=== PATIENT | male | born 1945 | race Caucasian/White ===

== ENCOUNTER 2017-10-29 08:50 | Day surgery (SDC) | payer MEDICARE, OTHER ==
[~2017-10-29] VITALS: Ht 175.3 cm; Wt 98.9 kg
[~2017-10-29 08:50] MED LIST: ADVIL200 M1 PO; BENICAR20 MG PO; BENICAR40 MG PO; CIALIS20 MG PO; CIALIS5 MG PO; FINASTERIDE5 MG PO; HYDROCODON-ACE1 EA11 PO; IRON18 MG PO; LEVAQUIN750 MG PO; LIFE-PACK0.8 MG PO; MACUVITE TABLE1 EACH PO; OXYCODONE HCL5 MG PO; TAMSULOSIN HCL0.4 MG PO; TERAZOSIN HCL5 MG PO; XARELTO10 MG PO
--- NOTE | 2017-10-29 11:37 | NUR ---
10/29/17 1137 [place] PAC[place], ALERT AND ORIENTED. RESP EVEN UNLABORED
--- NOTE | 2017-11-04 13:25 | OR ---
[facility] [address] [place], [place] [address] Signed DATE OF OPERATION: 10/29/2017 SURGEON: Alfonso Rg MD PREOPERATIVE DIAGNOSIS: Dupuytren's contracture, left hand affecting the 5th ray. POSTOPERATIVE DIAGNOSIS: Dupuytren's contracture, left hand affecting the 5th ray. PROCEDURE: Partial palmar fasciectomy, left hand. ANESTHESIA: Sedation with peer block. COMPLICATIONS: There were no complications. We did send the excised specimen of palmar fascia to the lab. WHAT WAS DONE: The patient was taken to the operating room. After anesthesia was induced, the patient's left upper extremity was positioned, prepped and draped in a routine sterile fashion. A longitudinal incision was outlined beginning at the midportion of the proximal phalanx extending up the palm through we reached the proximal end of the palpable nodular deformity. Skin was divided sharply. We then used a #15 blade to gently peel full-thickness flaps off the plantar fascia beginning proximally and extending distally. Once we had exposed on the volar surface, small soft tissue retractor was placed and we used a pair of curved tenotomy scissors to identify the neurovascular structures on either side and then I gently dissect them down all the way to the distal aspect of the incision. Once we had safely identified and retracted the neurovascular bundles, we then began to separate the diseased palmar fascia from the underlying tissue. It was then dissected distally and removed as a single larger fragment. At this point, we had full extension of the MCP, PIP, and DIP joints. The neurovascular structures were identified and completely intact. The wound was gently irrigated. A longitudinal incision was converted to multiple Z-plasties and closed with interrupted sutures of 4-0 nylon. A bulky hand dressing was placed and the patient was awakened to recovery room where arrived in stable condition. Counts were correct and antibiotic protocols were followed. Electronically Signed By: ALFONSO RG MD 11/04/17 1325 PATIENT NAME: HALIMA ALLEN ISIDRO OPERATIVE REPORT DATE OF : 47 PHYSICIAN: ALFONSO RG MD REPORT #: [id number] REPORT IS CONFIDENTIAL AND NOT TO BE RELEASED WITHOUT AUTHORIZATION [address] [place], [place] [address] Signed Alfonso Rg MD [facility]/MODL /[id number] Electronically Signed By: ALFONSO RG MD 11/04/17 1325 PATIENT NAME: TIFFANYHALIMA ALCARAZ OPERATIVE REPORT DATE OF : 47 PHYSICIAN: ALFONSO RG MD REPORT #: [id number] REPORT IS CONFIDENTIAL AND NOT TO BE RELEASED WITHOUT AUTHORIZATION
== END 2017-10-29 12:05 | disposition home or self-care (01) ==
LOC: OPS 08:50 → DS 08:50 → OPS 09:30
PROVIDERS: Orthopaedic Surgery
PROC: 0JNK0ZZ Release Left Hand Subcutaneous Tissue and Fascia, Open Approach (ICD-10-PCS; principal; 2017-10-29 10:15)
DX: M72.0 Palmar fascial fibromatosis [Dupuytren] (principal); M06.9 Rheumatoid arthritis, unspecified; I10 Essential (primary) hypertension; Z79.899 Other long term (current) drug therapy
CPT/HCPCS: 01810; 88304; J0690; J2250; J2704; J3010; J7120

== ENCOUNTER 2018-12-08 21:33 | Observation (INO) | payer MEDICARE, OTHER ==
[~2018-12-08] VITALS: Ht 175.3 cm; Wt 99.6 kg
[2018-12-08] MEDS ORDERED: TURMERIC500 M2 PO (21:50)
--- NOTE | 2018-12-08 23:01 | EKG ---
[facility] [address] [facility] [place] [address] Signed Normal sinus rhythm Normal ECG When compared with ECG of 27-OCT-2017 16:45, No significant change was found Confirmed by BHAVANI SANTAMARIA MD ([id number]) on 12/08/2018 11:00:59 PM Electronically Signed By: BHAVANI SANTAMARIA MD 12/08/18 2301 PATIENT NAME: HALIMA ALLEN ISIDRO Electrocardiogram DATE OF : 47 PHYSICIAN: BHAVANI SANTAMARIA MD REPORT #: [id number] REPORT IS CONFIDENTIAL AND NOT TO BE RELEASED WITHOUT AUTHORIZATION
--- NOTE | 2018-12-09 00:31 | NUR ---
ADMISSION COMPLETED. PATIENT ORIENTED TO FLOOR, ROOM, AND CALL LIGHT. PATIENT VERBALIZES UNDERSTANDING. PATIENT DENIES ANY NEEDS. ICE WATER PROVIDE. IV INFUSING. CALL LIGHT IN REACH. PATIENT WAS ABLE TO VOID. PATIENT SBA AND IS STEADY ON HIS FEET. PATIENT DENIES BEING LIGHT HEADED OR DIZZY WHEN AMBULATING.
--- NOTE | 2018-12-09 01:33 | NUR ---
AWAKES EASILY, NO C/O AUDITORY OR VISUAL HALLUCINATIONS, NO HAND TREMORS, ALERT AND ORIENTED, NO SWEATING. COOPERATIVE WITH ASSESSMENT. DENIES N/V, LIGHTHEADESS, BED ALARM ON. FALL PRECAUTIONS IN PLACE, IVF INFUSING W/O PROBLEMS
--- NOTE | 2018-12-09 05:33 | NUR ---
up to brp, tolerated well, no s/sx etoh withdrawal. coop with assessment
--- NOTE | 2018-12-09 06:16 | NUR ---
PT HAS SLEPT, IS ALERT AND ORIENTED. UP TO BR W MINIMUM OF HELP. CIWA SCORES HAVE BEEN ZERO. NO TREMORS PRESENT. IVF INFUSING W/O PROBLEMS. TOLERATING FLUIDS WELL. NO C/O N/V. NO PAIN. COOP WITH ORTHOSTATIC BPS, NO SYNCOPE OR C/O LIGHTHEADNESS. HAS 2 FIELD START IV
--- NOTE | 2018-12-09 08:50 | NUR ---
PT RESTING SUPINE IN BED, DENIES DIZZINESS, PAIN, NAUSEA OR ANY OTHER SYMPTOMS. ASSESSMENT COMPLETED. FLU VACCINE ADMINISTERED TO LEFT DELTOID AND PT TOLORATED WELL. FAMILY IN TO SEE PATIENT. PT ASKS "WELL AM I GOING TO BE DISCHARGED THIS MORNING?" PT INFORMED THAT MD WILL BE IN TO SEE HIM THIS MORNING AT SOME POINT AND WILL DISCUSS POSSIBILITY OF DISHCARGE. CALL LIGHT AND H20 IN REACH. PT ATE 95% OF BREAKFAST AND 200 MLS OF FLUIDS. PT DENIES FURTHER NEEDS OR CONCERNS.
[2018-12-09] MEDS ORDERED: CIALIS5 MG PO (09:56)
[2018-12-09] MEDS ORDERED: BENICAR40 MG PO (09:57)
[2018-12-09] MEDS ORDERED: TERAZOSIN HCL5 MG PO (09:57)
--- NOTE | 2018-12-09 10:01 | NUR ---
PATIENT RESTING IN BED. IN ROOM. VITAL SIGNS AND I&O DONE. CALL LIGHT WITHIN REACH. NO OTHER NEEDS AT THIS TIME
--- NOTE | 2018-12-09 11:29 | NUR ---
PT WAS UP AMBULATING IN [place] WITH PT. PT WALKED WITH SLOW BUT STEADY GAIT. PT WAS ON 3LPNC WHILE UP AMBULATING. PT DID DESAT TO 87% ON THE 3LPNC. PT WAS REMINDED TO BREATH IN THROUGH HIS NOSE AND OUT THROUGH HIS MOUTH. O2 WAS TITRATED UP TO 5LPNC AND PT NOW SATTING AT 94% AND DENIES SOB OR DIZZINESS AND STATES THAT HIS LEFT SIDED RIB PAIN IS TOLERABLE. PT DID ONE FULL LAP AROUND NURSING STATIONS AND BACK TO ROOM. PT NOW RESTING UP IN CHAIR AND DENIES SOB ON 4LPNC. CALL LIGHT AND H20 IN REACH AND AT BEDSIDE. PT EXPRESSES THAT HE WOULD LIKE TO GO HOME TODAY AND THAT HE WOULD NOT LIKE TO STAY IN THE HOSPITAL ANOTHER NIGHT. WILL UPDATE MD OF RESULTS.
== END 2018-12-09 11:08 | disposition home or self-care (01) ==
LOC: ED 21:33 → MS 21:34
PROVIDERS: ADMIT Internal Medicine
DX: E86.0 Dehydration (principal); I95.1 Orthostatic hypotension; I10 Essential (primary) hypertension; M06.9 Rheumatoid arthritis, unspecified; N40.0 Benign prostatic hyperplasia without lower urinary tract symptoms; Z79.1 Long term (current) use of non-steroidal anti-inflammatories (NSAID); Z79.899 Other long term (current) drug therapy; Z88.8 Allergy status to other drugs, medicaments and biological substances; Z23 Encounter for immunization
CPT/HCPCS: 71045; 80053; 81001; 83735; 84484; 85025; 93005; 93010; 96360; 97161; 99285-25; G0008; G0378; G0480; J7030; J7120

== ENCOUNTER 2022-04-23 07:05 | Day surgery (SDC) | payer MEDICARE, BC ==
--- NOTE | ~2022-04-23 | EKG ---
[facility] [address] [facility] [place], [place] [address] Draft EK completed, results pending confirmation PATIENT NAME: HALIMA ALLEN ISIDRO Electrocardiogram DATE OF : 47 PHYSICIAN: PRELIMINARY REPORT #: [id number] REPORT IS CONFIDENTIAL AND NOT TO BE RELEASED WITHOUT AUTHORIZATION
[~2022-04-23 07:05] MED LIST changes: +COZAAR50 MG PO; +TURMERIC500 M2 PO
[2022-04-23] MEDS ORDERED: SULFAMETHOXAZO1 EAC1 PO (07:48)
[2022-04-23] MEDS ORDERED: POTASSIUM CITR10 ME1 PO (07:50)
--- NOTE | 2022-04-23 10:04 | NUR ---
04/23/22 1004 Thalia Humphrey 0956-PATIENT ARRIVED TO PACU ON 6L MASK ORAL AIRWAY IN PLACE REACTIVE TO VERBAL STIMULI. IVF INFUSING. SR. DRESSING CDI TO RIGHT ARM. ELEVATED ON PILLOW 0958-PATIENT REACTIVE TO VERBAL STIMULI OPENING EYS AND MOVING HEAD ORAL AIRWAY REMOVED. ORIENTED TO PACU 6L MASK RR EVEN. ICE TO RIGHT ARM. GOOD CAP REFILL, WARMTH AND PALPABLE RIGHT RADIAL PULSE. 1000-PATIENT AWAKE DROWSY PLACED ON RA RR EVEN
--- NOTE | 2022-04-23 10:30 | NUR ---
PT ARRIVES TO DS RM 3 AWAKE AND ALERT FROM PACU. PT DENIES PAIN WHEN ASKED STATES, "NOTHING TO WORRY ABOUT." DENIES NAUSEA, PROVIDED ICED WATER PER REQUEST. DC CRITERIA EXPLAINED, CALL LIGHT IN REACH PT WATCHING TV.
[2022-04-23] MEDS ORDERED: HYDROCODON-ACE1 EAC8 PO (11:28)
--- NOTE | 2022-04-23 11:30 | NUR ---
[id number]: PT USES CALL LIGHT TO ALERT RN OF URGE TO VOID. PT SITS AT SIDE OF BED PRIOR TO STANDING, DENIES NAUSEA OR DIZZINESS WITH POSITION CHANGE. STEADY GAIT TO BATHROOM WITH RN ASSIST, ABLE TO VOID QS. BACK TO DS RM 3 TO GET DRESSED, SON IN ROOM AT THIS TIME FOR SAFE RIDE HOME. [id number]: PT OPENS CURTAIN WHEN DRESSED. DC INSTRUCTIONS PRESENTED VERBALLY AND WRITTEN, NO FURTHER QUESTIONS. PT AWARE OF RX SCRIPT AND NEED TO TAKE TO PHARMACY TO HAVE FILLED. PT DC FROM DS RM 3 VIA WC TO SON'S PERSONAL VEHICLE AT MAIN ENTRANCE OF HOSPITAL TO HOME.
--- NOTE | 2022-04-24 05:58 | OR ---
[facility] [address] [place], [place] [address] Signed DATE OF OPERATION: 04/23/2022 SURGEON: Cynthia Pham MD PREOPERATIVE DIAGNOSES: 1. Right forearm abscess. 2. Possible right forearm foreign body. POSTOPERATIVE DIAGNOSES: 1. Right forearm abscess (4 mm x 30 mm). 2. No foreign body. PROCEDURE: Incision and drainage of right forearm abscess with cultures. ESTIMATED BLOOD LOSS: None. INDICATIONS: Zeyad is a 76-year-old gentleman, who is now retired. He went out to put a bird house up in the tree at his house. He said he missed the last step on a ladder and fell back and cut his arm on the tree limb. He said he pulled a splinter out of his arm and cleaned up the areas. This happened about 2 weeks ago. However, on the ulnar side of his forearm about 5 cm distal to the antecubital fossa, there was a small 2 mm hole with pus coming out. He has some surrounding erythema. He actually was in his primary care provider's office because his had an appointment. The primary care provider asked him to come see me emergently in my office that same day. We can see that he does have a little bit erythema there and certainly he had some pus coming out as well. Cultures were taken at the primary care provider's office. He had been written for Bactrim and filled that last evening. He took his first dose last evening. We had him come in to the OR today so we could open that area and explore that quite thoroughly. I explained him this really is not at all best done under local anesthetic. We really need him asleep with good lighting and OR nurse to help retract and so forth. Even then it can be quite difficult. Particularly when it is a non-metallic foreign body, we cannot use the fluoroscopy unit to find it. However, he is quite convinced that he pulled the splinter out 2 weeks ago. I explained to him that we have to open that incision and we leave it open to heal secondarily. He knows there is risk including, but not limited to bleeding, infection, scarring, change in contour of the skin as well as possible need for additional surgeries. He understands that if it is in the muscle, we generally would have orthopedic surgeon assist in that regard. He had expressed understanding and Electronically Signed By: CYNTHIA PHAM MD 04/24/22 0558 PATIENT NAME: ZEYAD ALLEN OPERATIVE REPORT DATE OF : 47 REPORT #: [id number] PHYSICIAN: CYNTHIA PHAM MD PCP: ANYA JASSO MD REPORT IS CONFIDENTIAL AND NOT TO BE RELEASED WITHOUT AUTHORIZATION [facility] [address] [place], [place] [address] Signed wished to proceed. PROCEDURE NOTE: I met with Blair in our preop area. We marked the area appropriately. He put some type of glue over all these areas and we peeled all that off and told him not to use any more that and to let the areas open to air. In fact, all the other areas were dry and scabbed over. He was then taken back to the operating room and placed in the supine position under general LMA anesthesia. He was given preoperative antibiotics along with subcutaneous heparin. SCDs were utilized. His right arm was then prepped and draped in usual sterile fashion. We carefully probed the area with our hemostats. We had open the incision obliquely and we started at the opening and headed up distally down the forearm about 3 cm at most. We found some granulation tissue and as we looked, we followed the tract down carefully with continued granulation tissue until we encountered a pocket of pus, it was just a cc or so. We took cultures, but unfortunately we did not have anaerobic cultures available. Therefore only aerobic cultures were taken. We washed out the wound and we looked very carefully and from what we can tell this was all subcutaneous. It appears that the cavity stopped and did not extend any further. We did not see it penetrate the fascia of the muscle. We then injected local anesthetic. The wound had been irrigated and suctioned out until clear. We used Dakin-soaked gauze to pack the wound. We cut at the length to fit into the wound. We then placed dry gauze over this, wrapped it with 4-inch Kerlix gauze along with a 4-inch Markus wrap. He was then awakened from his anesthesia, extubated in the OR, and taken to recovery room in stable condition. Cynthia Pham MD [facility]/MODL /[id number] cc: MD Cynthia Rodriguez MD Copies: ANYA JASSO MD Electronically Signed By: CYNTHIA PHAM MD 04/24/22 0558 PATIENT NAME: ZEYAD ALLEN OPERATIVE REPORT DATE OF : 47 REPORT #: [id number] PHYSICIAN: CYNTHIA PHAM MD PCP: ANYA JASSO MD REPORT IS CONFIDENTIAL AND NOT TO BE RELEASED WITHOUT AUTHORIZATION [facility] [address] [address] [place] [address] Signed CYNTHIA PHAM MD ~ Electronically Signed By: CYNTHIA PHAM MD 04/24/22 0558 PATIENT NAME: ZEYAD ALLEN ISIDRO OPERATIVE REPORT DATE OF : 47 REPORT #: [id number] PHYSICIAN: CYNTHIA PHAM MD PCP: ANYA JASSO MD REPORT IS CONFIDENTIAL AND NOT TO BE RELEASED WITHOUT AUTHORIZATION
== END 2022-04-23 11:45 | disposition home or self-care (01) ==
LOC: DS 07:05
PROVIDERS: ATTEND Colon & Rectal Surgery
PROC: 0J9G0ZZ Drainage of Right Lower Arm Subcutaneous Tissue and Fascia, Open Approach (ICD-10-PCS; principal; 2022-04-23 08:30)
DX: L02.413 Cutaneous abscess of right upper limb (principal); M19.90 Unspecified osteoarthritis, unspecified site; I10 Essential (primary) hypertension; F17.210 Nicotine dependence, cigarettes, uncomplicated; Z85.46 Personal history of malignant neoplasm of prostate; Z88.5 Allergy status to narcotic agent
CPT/HCPCS: 36415; 80048; 85025; 87205; 93005; 93010; J0690; J1100; J1644; J1885; J2001; J2405; J2704; J3010; J7121